=== PATIENT | female | born 1975 | race Caucasian/White ===

== ENCOUNTER 2022-03-15 05:45 | Day surgery (SDC) | payer OTHER ==
[~2022-03-15] VITALS: Ht 172.7 cm; Wt 131.8 kg
--- NOTE | ~2022-03-15 | OR ---
[facility] [address], [place] [address] Draft DATE OF OPERATION: 03/15/2022 SURGEON: Anne Marie Graham MD PREOPERATIVE DIAGNOSES: Cervical intraepithelial neoplasia 2, positive endocervical curettage, morbid obesity. POSTOPERATIVE DIAGNOSES: Cervical intraepithelial neoplasia 2, positive endocervical curettage, morbid obesity, pending pathology. PROCEDURE: Cone biopsy with endocervical curettage. ANESTHESIA: General LMA. ESTIMATED BLOOD LOSS: 50 mL. DRAINS: None. INDICATIONS AND FINDINGS: The patient is a 46-year-old female, currently using the Mirena for control, who was recently diagnosed with SANA 2 and a positive ECC. At the time of surgery, exam under anesthesia revealed a normal-size uterus with no palpable masses. The cervix had a large nonstaining area especially posteriorly. DESCRIPTION OF PROCEDURE: The patient was prepped and draped in the dorsal lithotomy position. A large [place] speculum was placed in the cul-de-sac and the anterior lip of the cervix was then visualized and grasped with a single-tooth tenaculum. The sutures of 0 chromic were placed at 3 and 9 o'clock in a [id number]-gs-[id number] manner. The cervix and vagina were then stained with Lugol solution. The 11 blade was then used to circumscribe the abnormal area beginning at 3 o'clock and coming around to the 3 o'clock margin. It was amputated at the base. The specimen was subsequently marked at 12 o'clock. The base of the cone was then treated with cautery. This improved the bleeding significantly. ECC was then done with a small amount of tissue found. Following this, there continued to be some bleeding especially posteriorly and several kalccg-gw-proct sutures of 0 chromic were PATIENT NAME: BLAINE DEMPSEY OPERATIVE REPORT DATE OF : 75 REPORT #: [id number] PHYSICIAN: ANNE MARIE GRAHAM MD PCP: CHERRY ALEXIS DO REPORT IS CONFIDENTIAL AND NOT TO BE RELEASED WITHOUT AUTHORIZATION [facility] [address], [place] [address] Draft placed in this area to control bleeding. Following this, Monsel solution was placed at the base and pressure placed with improvement in the hemostasis. There continued to be a small area posteriorly with some bleeding. This was again treated with cautery and another rplkhc-rd-[id number] suture of 0 chromic was placed. At this point, hemostasis did appear to be assured. Because of the difficulty assuring hemostasis, the base was filled with FloSeal. This was followed by a Gel-Foam pack. A suture of 0 chromic was used to secure the Gel-Foam in place from anterior to posterior. Following this, remaining stay sutures were cut and the procedure was terminated. All sponge and needle counts were correct. She tolerated the procedure well and was taken to the recovery room in good condition. Anne Marie Graham MD PJW/MODL /[id number] cc: Cherry Alexis DO Copies: CHERRY ALEXIS DO ~ PATIENT NAME: BLAINE DEMPSEY OPERATIVE REPORT DATE OF : 75 REPORT #: [id number] PHYSICIAN: ANNE MARIE GRAHAM MD PCP: CHERRY ALEXIS DO REPORT IS CONFIDENTIAL AND NOT TO BE RELEASED WITHOUT AUTHORIZATION
[~2022-03-15 05:45] MED LIST: IRON325 M1 PO; MIRENA1 EACH IY; MULTI VITAMIN1 EACH PO
[2022-03-15] MEDS ORDERED: IBUPROFEN200 M1 PO (06:08)
[2022-03-15] MEDS ORDERED: MELATONIN1 MG PO (06:09)
--- NOTE | 2022-03-15 08:59 | NUR ---
03/15/22 0859 Caryl Costa 0818 PT ARRIVED IN PACU NON RESPONSIVE TO NOXIOUS STIMULI WITH OPA IN PLACE. 0828 PT REACTIVE. OPA REMOVED. 0837 C/O CRAMPS 12/15. MORPHINE 4MG GIVEN IV. 0840 C/O NAUSEA. ZOFRAN 4MG GIVEN IV. 0850 NAUSEA GONE AND CRAMPS BETTER PER PT. 0855 TO DS. REPORT GIVEN TO PARAMJIT.
--- NOTE | 2022-03-15 09:06 | NUR ---
PT ARRIVES TO DS RM 4 FROM PACU AWAKE AND ALERT, TEARFUL. PT STATES, "I DON HAVE MUCH PAIN 2/10, LIKE PERIOD CRAMPS... BUT MY EMOTIONS ARE HIGH." PT EDUCATED ABOUT MEDICATIONS AND SIDE EFFECTS. PT SIG OTHER AT BEDSIDE, CALL LIGHT WITHIN REACH. PT PROVIDED WATER, DENIES SNACK AT THIS TIME.
[2022-03-15] MEDS ORDERED: MOTRIN IB200 M1 PO (09:38)
[2022-03-15] MEDS ORDERED: HYDROCODON-ACE1 EA10 PO (09:39)
--- NOTE | 2022-03-15 09:45 | NUR ---
0930: PT USES CALL LIGHT TO ALERT RN OF URGE TO VOID. PT SITS AT SIDE OF BED PRIOR TO STANDING, DENIES DIZZINESS OR NAUSEA. STEADY AMBULATION WITH RN ASSIST TO BATHROOM, ABLE TO VOID 400 MLS PINK TINGED URINE WITH NO PROBLEM. BACK TO DS RM 4 TO GET DRESSED WITH SIG OTHER AT BEDSIDE.
--- NOTE | 2022-03-15 10:42 | NUR ---
[id number]: DC CRITERIA MET, PT DRESSED AND READY TO GO HOME. DC INSTRUCTIONS PRESENTED VERBALLY AND WRITTEN TO PT AND SIGNIFICANT OTHER, NO FURTHER QUESTIONS. PT AWARE OF RX SCRIPT IN DC PACKET AND NEED TO DROP OFF AT PHARMACY. PT DC VIA WC FROM DS RM 4 TO PERSONAL VEHICLE AT MAIN HOSPITAL ENTRANCE TO HOME.
--- NOTE | 2022-03-16 16:29 | PATH ---
[facility] [address], [place] [address] Signed SPECIMEN(S): A CONE BIOPSY MARKED AT 12 O'CLOCK SPECIMEN(S): B ENDOCERVICAL CURETTINGS SPECIMEN SOURCE: A. CONE BIOPSY MARKED AT 12 O'CLOCK B. ENDOCERVICAL CURETTINGS CLINICAL HISTORY: Cone biopsy. SANA 2; positive HPV DNA test. FINAL PATHOLOGIC DIAGNOSIS: A. Cervix, cone excision: - High-grade squamous intraepithelial lesion (SANA 2-3). - Surgical margins appear uninvolved by high-grade dysplasia. B. Endocervix, curettage: - Fragments of benign endocervical tissue; negative for dysplasia. BRP:[facility]:C2NR MICROSCOPIC EXAMINATION: Histologic sections of all submitted blocks are examined by light microscopy. These findings, together with the gross examination, support the pathologic diagnosis. GROSS DESCRIPTION: Two specimens are received in two containers, labeled "DH." A. The specimen, labeled "DH, A," and designated on the requisition "cone biopsy," is received in formalin and consists of an oriented cervical cone. With the suture set at 12:00, the cone measures 2.5 cm (3 to 9 o'clock) x 1.8 cm (12 to 6 o'clock) x up to 2.0 cm in depth containing a 1.1 cm, open, slit-like os. The mucosal surface is stoner and smooth with 0.9 cm possible ulceration at the 10 to 11:00 margin, abutting the os. The surgical margin is inked black and the os is inked blue. The specimen is radially sectioned and entirely submitted as follows: Cassette Summary: (A1) 12 to 3 o'clock (A2-A3) 3 to 6 o'clock (A4-A5) 6 to 9 o'clock (A6) 9 to 12 o'clock (A7) Thickened mucus and clot material with possible friable fragments PATIENT NAME: BLAINE DEMPSEY PATHOLOGY DATE OF : 75 REPORT #: [id number] PHYSICIAN: TANIYA KAHN PCP: CHERRY ALEXIS DO REPORT IS CONFIDENTIAL AND NOT TO BE RELEASED WITHOUT AUTHORIZATION [facility] [address], [place] [address] Signed B. The specimen, labeled "DH, B," and designated on the requisition "ECC," is received in formalin and consists of scanty mucus and clot material measuring 2.4 x 0.4 x 0.1 cm in aggregate. Specimen is filtered and entirely submitted in cassette (B1). AT (under the direct supervision of a pathologist) The Gross Description was prepared using a voice recognition system. The report was reviewed for accuracy; however, sound-alike word errors, addition and/or deletions may occur. If there is any question about this report, please contact Client Services. PERFORMING LABORATORY: The technical component was performed by [facility], [address] [place] [id number] (CLIA# [id number]). Professional interpretation was performed by [facility], [facility], [address] [place] [id number] (CLIA#: [id number]). Diagnostician: Willem Chacon MD Pathologist Electronically Signed 03/16/2022 Copies: ~ PATIENT NAME: BLAINE DEMPSEY PATHOLOGY DATE OF : 75 REPORT #: [id number] PHYSICIAN: TANIYA PATHOLOGY PCP: CHERRY ALEXIS DO REPORT IS CONFIDENTIAL AND NOT TO BE RELEASED WITHOUT AUTHORIZATION
== END 2022-03-15 10:08 | disposition home or self-care (01) ==
LOC: DS 05:45
PROVIDERS: ATTEND Obstetrics & Gynecology
PROC: 0UBC7ZX Excision of Cervix, Via Natural or Artificial Opening, Diagnostic (ICD-10-PCS; principal; 2022-03-15 06:45)
DX: N87.1 Moderate cervical dysplasia (principal); E66.01 Morbid (severe) obesity due to excess calories; N20.0 Calculus of kidney; Z68.41 Body mass index [BMI] 40.0-44.9, adult; Z97.5 Presence of (intrauterine) contraceptive device
CPT/HCPCS: J1644; J1885; J2001; J2250; J2270; J2405; J2704; J2765; J7121